=== PATIENT | male | born 1940 | race Two or more races ===

== ENCOUNTER 2022-05-22 11:00 | Inpatient (IN) | payer OTHER ==
[~2022-05-22] VITALS: Ht 152.4 cm; Wt 50.8 kg
[2022-05-22] MEDS ORDERED: JANUMET 50-1,01 EACH PO (15:44)
[2022-05-22] MEDS ORDERED: COZAAR25 MG PO (15:45)
[2022-05-26] MEDS ORDERED: PENTOXIFYLLINE400 MG (10:21)
[2022-05-26] MEDS ORDERED: JANUMET XR 50-1 EAC1 (10:21)
[2022-05-26] MEDS ORDERED: LOSARTAN POTAS100 MG (10:21)
[2022-05-26] MEDS ORDERED: PIOGLITAZONE HC15 MG (10:21)
[2022-05-26] MEDS ORDERED: GLIMEPIRIDE2 M1 (10:21)
[2022-06-10] MEDS ORDERED: FUSION PLUS CA1 EACH PO (14:20)
[2022-06-10] MEDS ORDERED: INTESTINEX680 M1 PO (14:20)
[2022-06-10] MEDS ORDERED: TAMS0.4C PO (14:20)
[2022-06-10] MEDS ORDERED: ABANEU-SL TABL1 EACH SL (14:20)
[2022-06-10] MEDS ORDERED: MULTIVITAMIN-M1 EACH PO (14:20)
[2022-06-10] MEDS ORDERED: LOSARTAN POTASS25 MG PO (14:20)
[2022-06-10] MEDS ORDERED: HYOSCYAMINE0.125 M1 SL (14:20)
[2022-06-10] MEDS ORDERED: SPIRONOLACTONE25 MG PO (14:20)
== END 2022-06-10 16:18 | disposition home or self-care (01) | DRG 330 ==
LOC: SEC-K 05-23 15:38 → MEDI 05-23 15:38 → MEDJ 05-24 12:18 → MEDI 05-24 14:34 → SURH 05-26 07:00 → SURG 05-30 08:27
PROVIDERS: Surgery; ADMIT Internal Medicine Geriatric Medicine; ATTEND Internal Medicine Geriatric Medicine
PROC: 30233N1 Transfusion of Nonautologous Red Blood Cells into Peripheral Vein, Percutaneous Approach (ICD-10-PCS; 2022-05-23)
PROC: BW21Y0Z Computerized Tomography (CT Scan) of Abdomen and Pelvis using Other Contrast, Unenhanced and Enhanced (ICD-10-PCS; 2022-05-24)
PROC: B246ZZZ Ultrasonography of Right and Left Heart (ICD-10-PCS; 2022-05-26)
PROC: 0W9G4ZZ Drainage of Peritoneal Cavity, Percutaneous Endoscopic Approach (ICD-10-PCS; 2022-05-29)
PROC: 0W3G4ZZ Control Bleeding in Peritoneal Cavity, Percutaneous Endoscopic Approach (ICD-10-PCS; 2022-05-29)
PROC: 30233L1 Transfusion of Nonautologous Fresh Plasma into Peripheral Vein, Percutaneous Approach (ICD-10-PCS; 2022-05-29)
PROC: 02HV33Z Insertion of Infusion Device into Superior Vena Cava, Percutaneous Approach (ICD-10-PCS; 2022-05-29)
PROC: 0D1L4Z4 Bypass Transverse Colon to Cutaneous, Percutaneous Endoscopic Approach (ICD-10-PCS; principal; 2022-05-29 14:55)
DX: C18.6 Malignant neoplasm of descending colon (principal); C78.7 Secondary malignant neoplasm of liver and intrahepatic bile duct; R18.8 Other ascites; D62 Acute posthemorrhagic anemia; D68.9 Coagulation defect, unspecified; K56.609 Unspecified intestinal obstruction, unspecified as to partial versus complete obstruction; N39.0 Urinary tract infection, site not specified; R19.4 Change in bowel habit; D63.0 Anemia in neoplastic disease; D69.59 Other secondary thrombocytopenia; R97.0 Elevated carcinoembryonic antigen [CEA]; K74.60 Unspecified cirrhosis of liver; D72.828 Other elevated white blood cell count; F10.21 Alcohol dependence, in remission; E11.65 Type 2 diabetes mellitus with hyperglycemia; R16.1 Splenomegaly, not elsewhere classified; Z79.84 Long term (current) use of oral hypoglycemic drugs; Z87.891 Personal history of nicotine dependence